=== PATIENT | male | born 1970 | race African-American/Black ===

== ENCOUNTER 2023-03-15 12:02 | Emergency (ER) | payer MEDICARE ==
[~2023-03-15] VITALS: Ht 160 cm; Wt 88.5 kg
[2023-03-15 12:48] VITALS: BP 181/106
[2023-03-15 13:00] VITALS: BP 159/99
[2023-03-15 13:16] VITALS: BP 151/109
[2023-03-15] MEDS ORDERED: FLOXIN OTIC0.3 % AD (13:40)
[2023-03-15 13:59] VITALS: BP 168/88
== END 2023-03-15 14:00 | disposition home or self-care (01) ==
LOC: ED 12:02
DX: H60.91 Unspecified otitis externa, right ear (principal); E66.9 Obesity, unspecified